=== PATIENT | male | born 1985 | race Hispanic/Latino ===

== ENCOUNTER 2025-05-06 00:55 | Emergency (ER) | payer SELFPAY | END 2025-05-06 02:05 | disposition home or self-care (01) | LOC: MADERS 00:55 | DX: F14.90 Cocaine use, unspecified, uncomplicated (principal); F10.90 Alcohol use, unspecified, uncomplicated; R51.9 Headache, unspecified; R00.0 Tachycardia, unspecified; F17.210 Nicotine dependence, cigarettes, uncomplicated | CPT/HCPCS: 99284 ==